=== PATIENT | male | born 2005 ===

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

== ENCOUNTER 2025-02-17 01:13 | Inpatient (IN) | payer MEDICAID, SELFPAY ==
--- OUTSIDE RECORDS SUMMARY | 2019-03-20 05:15 | XMS_ITS | Continuity of Care Document ---
Author Organization [employer] Address [address] [place] [phone] Phone Care Team Providers Care Foot Worker Name Role Phone Guera Cuba MD Unavailable Unavailable Allergies, Adverse Reactions, Alerts Substance Reaction Status Criticality No Known Allergies Active No Inform ation Procedures Procedure Date PURE TONE HEARING TEST, AIR Screen Test Visual Acuity-mariangel 19 Immunization admin thru 18 YR 9 Tetanus/Diphth/Acell Pert(Tdap 19 Immunization Each Additional Component N Immunization admin thru 18 YR 9 Menigococcal Conjugate Vaccine 19 Init Preven Meds E&m New Pt; 1 19 SYST BP LT 130 MM HG Systolic: BP < 140 DIAST BP < 80 MM HG Diastolic: BP <90 WEIGHT RECORDED BODY MASS INDEX DOCD Advance Directives Directive Yes / No Effective Date File Name No Information Encounters Encounter Description Practice Location Reason(s) For Visit Diagnoses Date Provider Providers Copied on Encounter Init [facility], [address] [place] [address], [id number], [place] tel:[phone] EVAN Medical Well child (chief complaint) Encntr for routine child health exam w/o abnormal findingsBMI pediatric, 85% to less than 95th percentile for ageObesity with body mass index (BMI) greater than 99th percentile for age in pediatric patient, unspecified obesity type, unspecified whether serious comorbidity presentBody mass index (bmi) pediatric, greater than or equal to 95th percentile for ageVaccine refused by patientPoor dentition Bereket Lynne. [address], [place], [address], . tel:[phone] Family History Family Member Type Diagnosis Age At Onset No Information Immunizations Vaccine Date Status Comments HPV (9-valent) not administered Source: N ew Immunization Record Tdap administered Source: New Imm unization Record MCV4 administered Source: New Imm unization Record influenza, injectable, quadrivalent, (3 years or older) not administered Source: New Immuniza tion Record Varicella administered Source: Other R egistry Polio-Inject administered Source: Other R egistry PCV7 administered Source: Other R egistry MMR administered Source: Other R egistry DTaP administered Source: Other R egistry DTaP administered Source: Other R egistry HepA-Ped 2 Dose administered Source: Othe r Registry Varicella administered Source: Other R egistry PCV7 administered Source: Other R egistry MMR administered Source: Other R egistry Hib, NOS administered Source: Other R egistry HepA-Ped 2 Dose administered Source: Othe r Registry Hib, NOS administered Source: Other R egistry Polio-Inject administered Source: Other R egistry PCV7 administered Source: Other R egistry Flu NOS administered Source: Other R egistry DTaP administered Source: Other R egistry PCV7 administered Source: Other R egistry Flu NOS administered Source: Other R egistry Rotavirus, Pent administered Source: Othe r Registry Hib, NOS administered Source: Other R egistry RXmO-HbaT-FOV administered Source: Other Registry DTaP administered Source: Other R egistry Polio-Inject administered Source: Other R egistry PCV7 administered Source: Other R egistry HepB-Hib administered Source: Other R egistry DTaP administered Source: Other R egistry HepB-Peds administered Source: Other R egistry Payers Payer name Insurance type Covered democrat ID Delfina young(s) [facility] [id number] Wrap [address] [facility] [id number] [facility] [id number] Wrap 18 [facility] [id number] Social History Type Description Quantity Date Captured Comments Alcohol Use Details Unknown Caffeine Use Details Unknown Tobacco Use Status No Information Smoking Status No Information Sex Male Vital Signs Date / Time: Height Weight BMI Pulse Rate Blood Pressure Temperature Respiratory Rate Body Surface Area Head Circumference Head Circ. Percentile Wt./[place]. Percentile BMI percentile Pulse Ox Inhaled Ox 10:29 AM 64.57 in 93.123 kg (205.30 lbs) 34.6 2 kg/m eter (2) 62 /min 118/60 mm[Hg] 97.90 F 2.06 meter(2) 99 Chief Complaint And Reason For Visit From encounter dated '03/20/2019 10:15'. Well child (chief complaint). Description: Here with: momhad child hogan asthmaalso mom reports was told had arrhythmia but apparently has never seen cardiologistreports at 2 years of age discoveredhad ultrasound and ekg reports never had any specialist was told only needed to see cardio if any issues?last used inhaler 7 years agoNo recent illness or concerns.Parent reports no past medical history or surgeries. No prior hospitalizations.Diet:drinks juice, sodaDental:has not seendentist recently School:reg classesFamily history: 3 sibling in good health Reason For Referral Reason For Referral No Information Plan Of Treatment Date Type Action Status Goal Diet education completed Future Order: Lab Order HEMOGLOB IN A1C ([id number]), Sent on: Sent Future Order: Lab Order CBC (INC LUDES DIFF/PLT) ([id number]), Sent on: Sent Future Order: Lab Order COMPREHE NSIVE METABOLIC PANEL ([id number]), Sent on: Sent Future Order: Lab Order VITAMIN D,25-OH,TOTAL,IA ([id number]), Sent on: Sent Future Order: Lab Order URINALYS IS, COMPLETE ([id number]), Sent on: Sent Future Order: Lab Order TSH W/RE FLEX TO FREE T4 ([id number]), Sent on: Sent Future Order: Lab Order LIPID WA OFILE ([id number]), Sent on: Sent History Of Present Illness Encounter Date Complaint History Of Prese nt Illness Well child Here with: momha d child hogan asthmaalso mom reports was told had arrhythmia but apparently has never seen cardiologistreports at 2 years of age discoveredhad ultrasound and ekg reports never had any specialist was told only needed to see cardio if any issues?last used inhaler 7 years agoNo recent illness or concerns.Parent reports no past medical history or surgeries. No prior hospitalizations.Diet:drinks juice, sodaDental:has not seen dentist recently School:reg classesFamily history: 3 sibling in good health Functional Status Date Functional Assessmen t Pain Score 0/10 Instructions Date Instruction Additional Infor mation avoid sugary drinksd iscussed diet and exercise Related to Body mass index (bmi) pediatric, greater than or equal to 95th percentile for age Exercise education Related to BM I pediatric, 85% to less than 95th percentile for age Diet education Related to BMI p ediatric, 85% to less than 95th percentile for age Assessments Type Assessment Date assessment Encntr for routine child health exam w/o abnormal findings assessment BMI pediatric, 85% to less than 95th percentile for age assessment Obesity with body ma ss index (BMI) greater than 99th percentile for age in pediatric patient, unspecified obesity type, unspecified whether serious comorbidity present assessment Body mass index (bmi ) pediatric, greater than or equal to 95th percentile for age assessment Vaccine refused by patient Mar- impression guardian declined in fluenza vaccine and hpv against medical advice assessment Poor dentition impression has [facility] 2018 impression RACHANA signed for records 19 Mental Status Date Cognitive Assessment Orientation - [place] ed to time, place, person, situation. Patient Care Teams Name Effective Dates (start - stop) Status Members No Information
[2025-02-17] VITALS (10 sets, daily range): BP systolic 101–154; BP diastolic 50–90; PULSE 60–98; RESP 12–20; TEMP 36.5–36.8; O2SAT 92–98; BMI 28.7; BMI 28.2
--- NOTE | 2025-02-17 01:14 | W.ED.PSYCHS ---
HPI - Psych General: Chief Complaint: Psychiatric Symptoms Stated Complaint: MHE Source: patient and EMS Mode of arrival: EMS Limitations: no limitations History of Present Illness: 19-year-old male states that he has a history of bipolar states that he is upset tonight having suicidal thoughts. He states he is banging his head against the wall and wanted to try to get himself a concussion states he had got upset and does admit he is currently suicidal he denies any worse improving factors. He is on a prep resolved he denies any previous psych admissions Related Data Previous Rx's ?Medication ?Instructions ?Recorded aripiprazole 20 mg tablet 20 mg PO DAILY #30 tabs 12/26/24 Allergies Allergy/AdvReac Type Severity Reaction Status Date / Time No Known Allergies Allergy Verified 02/09/25 15:44 [facility] ED PFSH: Medical History (Updated 02/17/25 @ 02:04 by Nirali Bhakta MD) Psychiatric care Mood disorder Family History Mother Kleptomania Father Depression Cancer Social History Smoking and tobacco/nicotine status: former use of tobacco/nicotine Face to Face: Restrn/Seclusion Events leading up to initiation: Verbalizing threat to self or others and Combative/Striking out at staff or others Evaluation of patient's immediate situation: Signs of physical distress Patient reaction since intervention applied: Continued attempts/displays harmful behavior Recent labs reviewed: Yes Review of medications: Yes Patient's current medical/behavioral condition: No new concerns since last ROS Need for restraint or seclusion is: Continued Course Reevaluation(s): Reevaluation #1: Patient here while here to take his phone away and cannot see his girlfriend became extremely upset he is screaming and yelling tried to de-escalate not able to calm him down did have to give him sedation ketamine for his safety and staff Time: 01:26 Vital Signs: Vital signs: Vital Signs Temperature 97.8 F 02/17/25 01:38 Pulse Rate 65 02/17/25 01:44 Respiratory Rate 20 H 02/17/25 01:44 Blood Pressure 152/87 02/17/25 01:44 Pulse Oximetry 93 02/17/25 01:44 Oxygen Delivery Me thod Room Air 02/17/25 01:44 [facility] - Psych Medical Decision Making Patient presents here with suicidal ideations. Patient while here became extremely combative did have to chemically sedate him for his safety along with staff safety. He has been calm and cooperative now patient's blood work was normal he is medically cleared I spoke to Dr. Aviles and will admit to the psych [facility] on a 96-hour hold. Medical Records I reviewed the patient's medical records. Lab Data I reviewed the patient's lab results. 02/17/25 01:40 02/17/25 01:40 Laboratory Results WBC 10.92 10^3/uL (4.5-13.0) 02/17/25 01:40 RBC 5.94 10^6/uL (3.85-5.65) H 02/17/25 01:40 Hgb 17.60 g/dL (13.2-15.6) H 02/17/25 01:40 Hct 48.2 % (37-53) 02/17/25 01:40 MCV 81.1 fl (82-101) L 02/17/25 01:40 MCH 29.6 pg (27-33) 02/17/25 01:40 MCHC 36.5 g/dL (30-55) 02/17/25 01:40 RDW 12.0 % (12.1-15.1) L 02/17/25 01:40 Plt Count 294 10^3/cmm (157-399) 02/17/25 01:40 MPV 10.3 fL (7.4-10.4) 02/17/25 01:40 Neut % (Auto) 57.4 % 02/17/25 01:40 Lymph % (Auto) 36.9 % 02/17/25 01:40 [place] % (Auto) 4.3 % 02/17/25 01:40 Eos % (Auto) 0.7 % 02/17/25 01:40 Baso % (Auto) 0.4 % 02/17/25 01:40 Neut # (Auto) 6.27 10^3/uL (1.8-8.0) 02/17/25 01:40 Lymph # (Auto) 4.0 10^3/uL (1.5-6.5) 02/17/25 01:40 [place] # (Auto) 0.5 10^3/uL (0.2-0.9) 02/17/25 01:40 Eos # (Auto) 0.1 10^3/uL (0.0-0.8) 02/17/25 01:40 Baso # (Auto) 0.0 10^3/uL (0.0-0.1) 02/17/25 01:40 Nucleated RBC % (auto) 0 % 02/17/25 01:40 Nucleated RBCs # 0.0 /100WBC 02/17/25 01:40 No radiology studies performed this visit Discharge Plan Discharge Patient Disposition: Admitted As Inpatient Clinical Impression: Suicidal ideation Condition: Stable Coding Level of Care Code ED Revolving Inventory Clerk for Luiz Dunbar
[2025-02-17] MEDS: ketamine 100 mg/mL Inj 5 mL 300 MG IM (01:28)
--- NOTE | 2025-02-17 01:34 | PC.NURSE ---
96 Hour Involuntary Hold Patient Rights have been reviewed with the patient and a copy of the same has been provided to him. Security Officers Elin Braxton and Adrienne Johnson were present at bedside during presentation of Rights.
[2025-02-17 01:45] LABS: Hematocrit 48.2 % (37-53); Hemoglobin 17.60 g/dL (13.2-15.6); Mean Corpuscular HGB Conc 36.5 g/dL (30-55); Mean Corpuscular Hemoglobin 29.6 pg (27-33); Mean Corpuscular Volume 81.1 fl (82-101); Nucleated Red Blood Cells % 0 %; Platelet Count 294 10^3/cmm (157-399); Red Blood Count 5.94 10^6/uL (3.85-5.65); White Blood Count 10.92 10^3/uL (4.5-13.0)
[2025-02-17 02:06] LABS: Alanine Aminotransferase 21 U/L (0-41); Albumin Level 5.4 g/dL (3.5-5.2); Alcohol Level 141 mg/dL (0-10); Alkaline Phosphatase 73 U/L (40-130); Anion Gap 21.2 (5-19); Aspartate Amino Transferase 28 U/L (0-40); Blood Urea Nitrogen 12 mg/dL (6-20); Calcium 9.9 mg/dL (8.5-10.5); Carbon Dioxide 21 mmol/L (22-29); Chloride 105 mmol/L (98-107); Creatinine Clr Calc Pharmacy 134.5910; Globulin 2.8 g/dL (1.3-4.6); Glucose 91 mg/dL (65-115); Osmolality Calculated 297 mOsm/kg (285-295); Potassium 3.2 mmol/L (3.5-5.1); Sodium 144 mmol/L (136-145); Total Protein 8.2 g/dL (6.6-8.7)
[2025-02-17 02:18] LABS: Acetaminophen < 5.0 ug/mL (10-30); Salicylate < 0.3 mg/dL (3-10)
[2025-02-17 02:35] LABS: PCP Screen Urine Negative (Negative)
--- NOTE | 2025-02-17 05:02 | PC.NURSE ---
Pt arrived to NPU at 0313. Upon arrival pt is observed being unable to stand on his own, needing assistance transferring to the bed and getting dressed into NPU scrubs. Pt is unable to sign admission paperwork/ answer assessment questions at this time. Since pt has been on the unit several staff members have been needed in order to keep pt from getting out of bed. HS and security were on standby. VS at time of admission were BP- 140/59 , HR- 65, and O2- 95%. Nursing staff put pts mattress on the floor due to to him continuously attempting to roll of the sides of the bed and 2 falls mats were placed on both sides of pts mattress. Pt has also been experiencing nausea and vomiting since being on the unit. A 1:1 sitter has been placed on the pt at this time. HS and Security were able to leave the unit between 0400 and 0430 and pt is now observed resting in bed quietly with eyes closed, respirations even and unlabored, sitter at bedside.
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
[2025-02-17] MEDS: multivitamin therapeutic Tablet 1 TAB PO (08:26)
--- NOTE | 2025-02-17 13:02 | PC.ADMIT ---
[address] Admission Note: The patient,Yasir Olsen,19 y/o, was given written information regarding hospital policies, unit procedures and contact persons. Patient's smoking status: smoker, details unknown. Vital Signs - 8 hr 02/17/25 06:37 02/17/25 08:00 02/17/25 12:00 Temperature 97.9 F 98.2 F Pulse Rate 80 82 98 Respiratory Rate 16 18 18 Blood Pressure 136/90 130/70 146/85 Pulse Oximetry 97 96 96 Oxygen Delivery Method Room Air Room Air Patient is cooperative with physican yet is resistant to answer assessment questions. Patient resting after receiving Ketamine this morning. Update: Patient endorses history of BP 2. He states he thinks he also has MDD and ADHD. He denies SI/HI/AVH at present but has fleeting thoughts of SI daily. Patient reports he got drunk and attempted to give him self a concussion. He verbalized anxiety rated 10/10 and depression at times. He endorses instrusive thoughts that are self defeating. He lives in an apartment in [place] by himself. He is seeing a psychiatrist at [facility]. Unknown name.
--- NOTE | 2025-02-18 01:27 | PC.NURSE ---
vs not completed per nurse pt is soundly sleeping resp16
[2025-02-18 04:00] VITALS: BP 131/75; PULSE 69; RESP 17; TEMP 36.3; O2SAT 99
[2025-02-18] MEDS: multivitamin therapeutic Tablet 1 TAB PO (08:19)
--- NOTE | 2025-02-18 13:24 | P.NPUPN_ITS ---
Subjective NPU 2 Subjective: 19-year-old male admitted with bipolar 2 disorder with suicidal ideation. The patient had endorsed having more episodes of depression than emeterio historically. He had reported no side effects from his Prozac at this time. He remains somewhat isolative on the milieu. He had continued to report some feelings of hopelessness and depressed mood but reported no suicidal thoughts. Patient reported periods of low energy and low motivation. He had reported the use of marijuana for a significant amount of time. He had reported having periods of hypomania with no prior history of combination therapy with Abilify and Prozac. He had endorsed a history of self-injurious behavior. Mental Status Exam 2 MSE Comments: This is an overweight versus obese white male adolescent in hospital scrubs with limited grooming and eye contact. Noteworthy elyse in the center of his forehead that comes from where he was banging his head leading to the need for interventions. No abnormal involuntary motor movements except for mild psychomotor retardation. He was mostly cooperative with exam in mild to moderate distress. Speech was normal in rate and decreased in volume. Mood described as depressed. His affect was flat. Thought process was linear. Thought content: Patient endorsed passive suicidal thoughts but denied homicidal ideation, there were no delusions reported or noted. He denied any auditory or visual hallucinations. He reports chronic suicidal ideation with intrusive thoughts, particularly exacerbated by alcohol use. Experiences anxiety related to missing appointments, which is alleviated by his flexible work schedule with [employer]. Describes depressive episodes since childhood and mood swings associated with bipolar disorder, which he manages with cannabis use. Reports nausea and inability to eat due to anxiety when working traditional 9-to-5 jobs. Attention and concentration appeared intact and memory was mostly reliable but none or formally tested. He is alert and oriented x 3. Insight and judgment are limited impulse control impaired. Vitals/I&O/Wt Last Vital Signs Temp 97.4 F L 02/18/25 04:00 Pulse 69 02/18/25 04:00 Resp 17 02/18/25 04:00 BP 131/75 02/18/25 04:00 Pulse Ox 99 02/18/25 04:00 O2 Del Method Room Air 02/18/25 04:00 02/17/25 02/18/25 02/18/25 22:59 06:59 14:59 Intake Total 0 / 0 Balance 0 / 0 Weight last 48 hrs Weight 89.131 kg Weight 90.718 kg Data NPU 02/17/25 01:40 02/17/25 01:40 A&P Assessment and plan 1. Bipolar 2 disorder, major depressive episode: 2. Suicidal ideation: 3. Cannabis use disorder: 4. Alcohol use disorder: Plan: This is a 19-year-old white male unknown to [facility] inpatient psychiatry but known to [facility] outpatient services who presents reporting medications not being effective, depression, suicidality and having active addiction. Suicidal ideation reported as chronic intrusive thoughts, with increased difficulty managing ideation following alcohol use. Depressive episodes present since childhood, with exacerbation noted during alcohol consumption. Anxiety associated with work-related stress, particularly in structured employment settings. Bipolar disorder noted, with patient self- reporting mood stabilization benefits from cannabis use. Plan 1. Continue Prozac and abilify at 20mg daily. Consider Lamotrigine for bipolar depression. 2. Continue every 15 minute checks for safety 3. Continue to encourage individual milieu and group therapy 4. Encourage sober living treatment after discharge at the highest level care to which the patient is willing to commit. 5. Evaluate against the backdrop of the 96-hour hold. 6. Obtain collateral information. PDMP PDMP Reviewed: Not Reviewed Involuntary Hold Information 2 Hold Status: Legal Status: 96 Hour Hold Date/Time Hold Expires: 02/23/2025@ 0001 Attestations NPU 2 Medical Necessity Statement*: Inpatient hospitalization is medically necessary and the clinically appropriate intervention at this time. We will monitor/initiate medications and make changes as indicated. The patient's likely length of stay is 5 to 7 days. Coding Level of Care Code Acute Code for [facility] Diagnoses Bipolar 2 disorder, major depressive episode F31.81 Suicidal ideation R45.851 Cannabis use disorder F12.90 Alcohol use disorder F10.90
[2025-02-18 14:03] VITALS: BP 134/70; PULSE 77; RESP 18; TEMP 36.5; O2SAT 98
[2025-02-18 20:22] VITALS: BP 128/75; PULSE 72; RESP 18; TEMP 36.7; O2SAT 97
--- NOTE | 2025-02-19 06:45 | PC.NURSE ---
pt refused vs nurse notified resp 16
[2025-02-19] MEDS: multivitamin therapeutic Tablet 1 TAB PO (07:53)
[2025-02-19 11:13] VITALS: RESP 16
[2025-02-19 14:00] VITALS: BP 134/77; PULSE 64; RESP 15; TEMP 36.8; O2SAT 98
--- NOTE | 2025-02-19 16:49 | P.NPUPN_ITS ---
Subjective NPU 2 Subjective: 19-year-old male admitted with bipolar 2 disorder with suicidal ideation. The patient reported feeling much better on the Prozac. He had reported having intense episodes of depression historically with occasional periods of high energy and increased confidence. He had reported that he had been drinking and was educated about the problems with alcohol use and worsening bipolar disorder. Patient reported adequate sleep. He denied any hallucinations or any racing thoughts at this time. The patient was compliant and reported good energy and improved motivation. He endorsed no thoughts of hurting himself currently. The patient denied any feelings of hopelessness. Mental Status Exam 2 MSE Comments: This is an overweight versus obese white male adolescent in hospital scrubs with limited grooming and eye contact. Noteworthy elyse in the center of his forehead that comes from where he was banging his head leading to the need for interventions. No abnormal involuntary motor movements except for mild psychomotor retardation. He was mostly cooperative with exam in mild distress. His speech was normal in rate and normal in volume. Mood described as better. His affect was less restricted today. Thought process was linear. Thought content: Patient denied suicidal thoughts and denied homicidal ideation; there were no delusions reported or noted. He denied any auditory or visual hallucinations. He reports chronic suicidal ideation with intrusive thoughts, particularly exacerbated by alcohol use. Experiences anxiety related to missing appointments, which is alleviated by his flexible work schedule with [employer]. Describes depressive episodes since childhood and mood swings associated with bipolar disorder, which he manages with cannabis use. Reports nausea and inability to eat due to anxiety when working traditional 9-to-5 jobs. Attention and concentration appeared intact and memory was mostly reliable but none or formally tested. He is alert and oriented x 3. Insight and judgment are fair. Impulse control appeared to be improving. Vitals/I&O/Wt Last Vital Signs Temp 98.2 F 02/19/25 14:00 Pulse 64 02/19/25 14:00 Resp 15 02/19/25 14:00 BP 134/77 02/19/25 14:00 Pulse Ox 98 02/19/25 14:00 O2 Del Method Room Air 02/18/25 20:22 Weight last 48 hrs Weight 89.131 kg Data NPU 02/17/25 01:40 02/17/25 01:40 A&P PDMP PDMP Reviewed: Not Reviewed Involuntary Hold Information 2 Hold Status: Legal Status: 96 Hour Hold Date/Time Hold Expires: 02/23/25 @ 00:01 Attestations NPU 2 Medical Necessity Statement*: Inpatient hospitalization is medically necessary and the clinically appropriate intervention at this time. We will monitor/initiate medications and make changes as indicated. The patient's likely length of stay is 1-2 days. Coding Level of Care Code Acute Code for [facility]
--- NOTE | 2025-02-19 18:14 | P.NPUPN_ITS ---
Subjective NPU 2 Subjective: 19-year-old male admitted with bipolar 2 disorder with suicidal ideation. The patient reported feeling much better on the Prozac. He had reported having intense episodes of depression historically with occasional periods of high energy and increased confidence. He had reported that he had been drinking and was educated about the problems with alcohol use and worsening bipolar disorder. Patient reported adequate sleep. He denied any hallucinations or any racing thoughts at this time. The patient was compliant and reported good energy and improved motivation. He endorsed no thoughts of hurting himself currently. The patient denied any feelings of hopelessness. Mental Status Exam 2 MSE Comments: This is an overweight versus obese white male adolescent in hospital scrubs with limited grooming and eye contact. Noteworthy elyse in the center of his forehead that comes from where he was banging his head leading to the need for interventions. No abnormal involuntary motor movements except for mild psychomotor retardation. He was mostly cooperative with exam in mild distress. His speech was normal in rate and normal in volume. Mood described as better. His affect was less restricted today. Thought process was linear. Thought content: Patient denied suicidal thoughts and denied homicidal ideation; there were no delusions reported or noted. He denied any auditory or visual hallucinations. He reports chronic suicidal ideation with intrusive thoughts, particularly exacerbated by alcohol use. Experiences anxiety related to missing appointments, which is alleviated by his flexible work schedule with [employer]. Describes depressive episodes since childhood and mood swings associated with bipolar disorder, which he manages with cannabis use. Reports nausea and inability to eat due to anxiety when working traditional 9-to-5 jobs. Attention and concentration appeared intact and memory was mostly reliable but none or formally tested. He is alert and oriented x 3. Insight and judgment are fair. Impulse control appeared to be improving. Vitals/I&O/Wt Last Vital Signs Temp 97.9 F 02/20/25 14:00 Pulse 69 02/20/25 14:00 Resp 16 02/20/25 14:00 BP 142/78 02/20/25 14:00 Pulse Ox 97 02/20/25 14:00 O2 Del Method Room Air 02/20/25 06:00 Data NPU 02/17/25 01:40 02/17/25 01:40 A&P Assessment and plan 1. Bipolar 2 disorder, major depressive episode: 2. Suicidal ideation: 3. Cannabis use disorder: 4. Alcohol use disorder: Plan: This is a 19-year-old white male unknown to [facility] inpatient psychiatry but known to [facility] [place] outpatient services who presents reporting medications not being effective, depression, suicidality and having active addiction. Suicidal ideation reported as chronic intrusive thoughts, with increased difficulty managing ideation following alcohol use. Depressive episodes present since childhood, with exacerbation noted during alcohol consumption. Anxiety associated with work-related stress, particularly in structured employment settings. Bipolar disorder noted, with patient self- reporting mood stabilization benefits from cannabis use. Plan 1. Continue Prozac and abilify at 20mg daily. Consider Lamotrigine for bipolar depression. 2. Continue every 15 minute checks for safety 3. Continue to encourage individual milieu and group therapy 4. Encourage sober living treatment after discharge at the highest level care to which the patient is willing to commit. 5. Evaluate against the backdrop of the 96-hour hold. 6. Obtain collateral information. PDMP PDMP Reviewed: Not Reviewed Involuntary Hold Information 2 Hold Status: Legal Status: 96 Hour Hold Date/Time Hold Expires: 02/23/25 @ 00:01 Attestations NPU 2 Medical Necessity Statement*: Inpatient hospitalization is medically necessary and the clinically appropriate intervention at this time. We will monitor/initiate medications and make changes as indicated. The patient's likely length of stay is 2-3 days. Coding Level of Care Code Acute Code for g Fwd Diagnoses Bipolar 2 disorder, major depressive episode F31.81 Suicidal ideation R45.851 Cannabis use disorder F12.90 Alcohol use disorder F10.90
[2025-02-19 20:11] VITALS: BP 128/73; PULSE 74; RESP 18; TEMP 36.6; O2SAT 97
[2025-02-20 06:00] VITALS: BP 131/81; PULSE 90; RESP 18; TEMP 36.6; O2SAT 98
[2025-02-20] MEDS: multivitamin therapeutic Tablet 1 TAB PO (08:46)
[2025-02-20 11:00] VITALS: RESP 17
[2025-02-20 14:00] VITALS: BP 142/78; PULSE 69; RESP 16; TEMP 36.6; O2SAT 97
--- NOTE | 2025-02-20 18:08 | W.PM.NPUPNS ---
Subjective NPU Subjective: 19-year-old male admitted with bipolar 2 disorder with suicidal ideation. The patient reported no racing thoughts at this time. He reported that he was feeling better. He had minimized any thoughts of hurting himself or others. He had denied any manic symptoms. He had reported having struggled with depression throughout much of his life. Patient reported no struggles with concentration. He had reported no side effects from his medications. Mental Status Exam MSE Comments: This is an overweight versus obese white male adolescent in hospital scrubs with limited grooming and eye contact. Noteworthy elyse in the center of his forehead that comes from where he was banging his head leading to the need for interventions. No abnormal involuntary motor movements except for mild psychomotor retardation. He was mostly cooperative with exam in mild distress. His speech was normal in rate and normal in volume. Mood described as good. His affect was mildly euphoric today. Thought process was linear. Thought content: Patient denied suicidal thoughts and denied homicidal ideation; there were no delusions reported or noted. He denied any auditory or visual hallucinations. He reports chronic suicidal ideation with intrusive thoughts, particularly exacerbated by alcohol use. Attention and concentration appeared intact and memory was mostly reliable but none or formally tested. He is alert and oriented x 3. Insight and judgment are fair. Impulse control appeared to be improving. Vitals/I&O/Wt Last Vital Signs Temp 97.9 F 02/20/25 14:00 Pulse 69 02/20/25 14:00 Resp 16 02/20/25 14:00 BP 142/78 02/20/25 14:00 Pulse Ox 97 02/20/25 14:00 O2 Del Method Room Air 02/20/25 06:00 Data NPU 02/17/25 01:40 02/17/25 01:40 A&P Assessment and plan 1. Bipolar 2 disorder, major depressive episode: 2. Suicidal ideation: 3. Cannabis use disorder: 4. Alcohol use disorder: Plan: This is a 19-year-old white male unknown to [facility] inpatient psychiatry but known to [facility] outpatient services who presents reporting medications not being effective, depression, suicidality and having active addiction. Suicidal ideation reported as chronic intrusive thoughts, with increased difficulty managing ideation following alcohol use. Depressive episodes present since childhood, with exacerbation noted during alcohol consumption. Anxiety associated with work-related stress, particularly in structured employment settings. Bipolar disorder noted, with patient self-reporting mood stabilization benefits from cannabis use. Plan 1. Continue Prozac at 20mg and increase abilify to 30mg daily. Consider Lamotrigine for bipolar depression. 2. Continue every 15 minute checks for safety 3. Continue to encourage individual milieu and group therapy 4. Encourage sober living treatment after discharge at the highest level care to which the patient is willing to commit. 5. Evaluate against the backdrop of the 96-hour hold. 6. Obtain collateral information. PDMP PDMP Reviewed: Not Reviewed Involuntary Hold Information Hold Status: Legal Status: 96 Hour Hold Date/Time Hold Expires: 02/23/25 @ 00:01 Attestations NPU Medical Necessity Statement*: Inpatient hospitalization is medically necessary and the clinically appropriate intervention at this time. We will monitor/initiate medications and make changes as indicated. The patient's likely length of stay is 1-2 days. Coding Level of Care Code Acute Code for [facility] Fwd Diagnoses Bipolar 2 disorder, major depressive episode F31.81 Suicidal ideation R45.851 Cannabis use disorder F12.90 Alcohol use disorder F10.90
[2025-02-20 19:21] VITALS: BP 134/84; PULSE 60; RESP 18; TEMP 36.4; O2SAT 97
[2025-02-21 06:00] VITALS: BP 143/82; PULSE 72; RESP 18; TEMP 36.3; O2SAT 94
[2025-02-21] MEDS: multivitamin therapeutic Tablet 1 TAB PO (08:03)
[2025-02-21 11:00] VITALS: RESP 16
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
[2025-02-21 13:10] VITALS: BP 143/82; PULSE 72; RESP 18; TEMP 36.4; O2SAT 97
== END 2025-02-21 14:32 | disposition home or self-care (01) | DRG 885 ==
LOC: ER 02:04 → NP 02:57
PROVIDERS: Admitting Provider Psychiatry & Neurology Psychiatry; Emergency Provider Emergency Medicine; PCP Family Medicine; Visit Provider Psychiatry & Neurology Psychiatry
DX: F31.81 Bipolar II disorder (principal); R45.851 Suicidal ideations; F12.90 Cannabis use, unspecified, uncomplicated; F10.90 Alcohol use, unspecified, uncomplicated; Y90.6 Blood alcohol level of 120-199 mg/100 ml; E66.9 Obesity, unspecified; Z68.28 Body mass index [BMI] 28.0-28.9, adult; Z87.891 Personal history of nicotine dependence
CPT/HCPCS: 36415; 70450; 80053; 80306; 80307; 85025; 96372; 97150; 97165; 99285; J3490; J9999